=== PATIENT | male | born 1955 | race Caucasian/White ===

== ENCOUNTER → 2018-01-21 | Outpatient (CLI) | payer MEDICARE, OTHER ==
[~2018-01-21] MED LIST: ALBUTEROL 0.083% (NEB) 2.5 MG/3 ML AMP
[2018-01-21 09:55] LABS: AADO2 Arterial 27.4 mmHg (7.0-24.0); Allen Test ACCEPTAB; Arterial Base Excess 0 mmol/L (-3.0-3); Arterial Blood Gas Oxygen Sat 95.2 mmHG (95.0-98.0); Arterial COHb 0.9 % (0.0-3.0); Arterial Fraction of Oxyhgb 94.1 % (93.0-99.0); Arterial HCO3 24.8 mmol/L (22.0-26.0); Arterial MetHb 0.3 % (0.0-1.5); Arterial Total Hemglobin 14.8 g/dl (12.0-18.0); MODE ROOM AIR; Site Right Radial
== END | disposition home or self-care (01) ==
LOC: PUL 08:46
DX: R06.02 Shortness of breath (principal)
CPT/HCPCS: 36600; 82803; 94060; 94664; 94726; 94729